=== PATIENT | female | born 1995 | race Caucasian/White ===

== ENCOUNTER 2016-03-03 22:55 | Emergency (ER) | payer SELFPAY ==
--- NOTE | 2016-03-03 23:34 | ERRECORD ---
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 throbbing, n/v. HISTORIAN: History provided by patient, History provided by patient's spouse. LOCATION: Symptoms are localized. QUALITY: Pain is dull in nature, described as aching, described as throbbing. SEVERITY: Maximum severity of symptoms severe, Currently symptoms are moderate, may be slightly better than earlier, but pt still not able to sleep. TIME COURSE: Sudden onset of symptoms, Symptoms are improving, Symptoms are constant. ASSOCIATED WITH FEMALE: No associated symptoms, ONLY ABOVE. EXACERBATED BY: Patient's condition exacerbated by eye opening, Patient's condition exacerbated by light. RELIEVED BY: Patient's condition relieved by dark room. RISK FACTORS: No subarachnoid hemorrhage risk factors, Subarachnoid hemorrahage risk factor analysis completed. ROS CONSTITUTIONAL: Negative constitutional review of systems. (23:19 LLDO) EYES: Historian reports photophobia. (23:19 LLDO) ENT: Negative ears, nose, throat review of systems, Historian denies epistaxis, denies rhinorrhea, denies sinus pain, denies sore throat. (23:21 LLDO) GI: Historian reports anorexia, reports appetite changes, reports nausea, reports vomiting. (23:19 LLDO) MUSCULOSKELETAL: Negative musculoskeletal review of systems, Historian denies arthralgias, denies back pain, denies injury, denies myalgias, denies neck pain. (23:21 LLDO) SKIN: Negative skin review of systems, Historian denies cellulitis, denies rash, denies skin changes, denies skin lesions. (23:21 LLDO) NEUROLOGIC: Historian denies confusion, denies dizziness, denies dysphasia, denies focal weakness, denies gait changes, reports headache, denies irritability, denies lethargy, denies mental status changes. (23:19 LLDO) HEMO/LYMPHATIC: Normal hematologic/lymphatic system review, Historian denies abnormal blood clotting, denies gum bleeding, denies petechiae. (23:21 LLDO) ALLERGIC/IMMUNOLOGIC: Normal allergy/immunologic system review, Historian denies eczema, denies environmental allergies, denies food allergies. (23:21 LLDO) PSYCHIATRIC: Negative psychiatric review of systems, Historian denies alcohol abuse, denies anxiety, denies depression, denies drug abuse, denies hallucinations. (23:21 LLDO) NOTES: All systems reviewed, negative except as described above. &a-1R&a+25V*p+0X*u6459I*c202B*c15G*c2P*p-0X&a-25V&a+1R Name: Roland Lisa : 1995 F21 MedRec: [id number] AcctNum: [id number] Prepared: [facility] Mar 03, 2016 23:32 by Interface Page 1 of 3 pMD [facility] EMERGENCY RECORD (23:19 LLDO) PAST MEDICAL HISTORY MEDICAL HISTORY: No past medical history, Flu vaccine not up to date, Tetanus immunization up to date, Pneumococcal vaccine not up to date. (23:10 CJEF) FEMALE SURGICAL HISTORY: Patient has no surgical history,. (23:10 CJEF) PSYCHIATRIC HISTORY: Notes: DENIES, No previous psychiatric history. (23:10 CJEF) SOCIAL HISTORY: Patient denies alcohol use, Patient denies drug use, Patient has no smoking history, Lives at home, with family. (23:10 CJEF) NOTES: Nursing records reviewed, Agree with nursing records, Old chart reviewed, Medication list reviewed. (23:21 LLDO) KNOWN ALLERGIES Allergy History Not Known (Unconfirmed) NKDA (Unconfirmed) No Known Drug Allergies CURRENT MEDICATIONS (23:09 CJEF) None VITAL SIGNS VITAL SIGNS: Pulse: 96, Resp: 18, Temp: 98.5 (Rectal), Pain: 0, O2 sat: 95 on Room Air, Time: 03/03/2016 23:07. (23:07 CJEF) BP: 131/64, Time: 03/03/2016 23:09. (23:09 CJEF) PHYSICAL EXAM CONSTITUTIONAL: Vital Signs Reviewed, Patient afebrile, Pulse normal, Blood pressure normal, Respiratory rate normal, Patient appears, uncomfortable, Patient appears, Patient alert and oriented to person, place and time, Nursing notes reviewed. (23:20 LLDO) HEAD: Head exam normal, Head exam included findings of head atraumatic, normocephalic. (23:21 LLDO) EYES: Eye exam included findings of eyelids normal to inspection, Pupils equally round and reactive to light, Extraocular muscles intact, Conjunctiva normal, Sclera normal, Fundoscopic exam normal. (23:20 LLDO) ENT: ENT exam normal, Ear exam normal, Nose exam normal. (23:21 LLDO) NECK: Neck exam normal, Neck exam included findings of normal range of motion, Trachea midline, no meningeal signs, no tenderness. (23:21 LLDO) BACK: Back exam normal, Back exam included findings of normal inspection, range of motion normal. (23:21 LLDO) UPPER EXTREMITY: Upper extremity exam normal, Upper extremity exam included findings of inspection normal, Range of motion normal. &a-1R&a+25V*p+0X*p7776O*c202B*c15G*c2P*p-0X&a-25V&a+1R Name: Roland Lisa : 1995 F21 MedRec: [id number] AcctNum: [id number] Prepared: [facility] Mar 03, 2016 23:32 by Interface Page 2 of 3 pMD [facility] EMERGENCY RECORD (23:21 LLDO) LOWER EXTREMITY: Lower extremity exam normal, Lower extremity exam included findings of inspection normal, Range of motion normal. (23:21 LLDO) NEURO: Neuro exam normal, Neuro exam findings include patient oriented to person, place and time, Speech normal, [place] coma scale 15. (23:21 LLDO) SKIN: Skin exam normal, Skin exam included findings of skin warm, dry, and normal in color, no rash. (23:21 LLDO) PSYCHIATRIC: Psychiatric exam normal, Psychiatric exam included findings of patient oriented to person place and time, Normal affect. (23:21 LLDO) MEDICATION ADMINISTRATION SUMMARY Drug Name: Zofran ODT, Dose Ordered: 8 mg, Route: Sublingual, Status: Canceled, Time: 23:25 03/03/2016, Drug Name: Naprosyn, Dose Ordered: 500 mg, Route: Oral, Status: Canceled, Time: 23:25 03/03/2016, Drug Name: Benadryl oral, Dose Ordered: 50 mg, Route: Oral, Status: Canceled, Time: 23:03/03/2016, Drug Name: Octamide, Dose Ordered: 20 mg, Route: Oral, Status: Canceled, Time: 23:24 03/03/2016, Detailed record available in Medication Service section. DOCTOR NOTES (23:26 LLDO) TEXT: while I was writing up h&p her sx resolved so no real therapy was initiated and pt left pain free. PROBLEM LIST No recorded problems DIAGNOSIS (23:14 LLDO) FINAL: PRIMARY: Migraine (unspecified). PRESCRIPTION No recorded prescriptions DISPOSITION PATIENT: Disposition Type: Discharge, Disposition: *Discharge Home. (23:14 LLDO) Disposition Transport: Ambulatory, Condition: Good. (23:28 AGAN) Patient left the department. (23:29 AGAN) Mera: AGANyla=JOSE GUADALUPE Grubbs, Louis CJEF=JOSE GUADALUPE Kearns, Yani LLDO=MD Georgina, Grabiel &a-1R&a+25V*p+0X*a1334K*c202B*c15G*c2P*p-0X&a-25V&a+1R Name: Roland Lisa : 1995 F21 MedRec: [id number] AcctNum: [id number] Prepared: Debbie Mar 03, 2016 23:32 by Interface Page 3 of 3 pMD MTDD
--- NOTE | 2016-03-03 23:39 | PICIS ---
[facility] EMERGENCY RECORD TRIAGE (MonMar 03, 2016 23:09 CJEF) TRIAGE NOTES: PT REPORTS THAT SHE HAD A HEADACHE EARLIER AND CALLED INTO WORK. PT REPORTS THAT SHE IS ONLY HERE NOW FOR A WORK EXCUSE. PT DENIES ANY PAIN. PT WAS HERE RECENTLY FOR THE EXACT SAME THING. (MonMar 03, 2016 23:09 CJEF) PATIENT: NAME: Roland Lisa, AGE: 21, GENDER: female, : Mon1995, TIME OF GREET: MonMar 03, 2016 22:55, PREFERRED LANGUAGE: Georgian, ETHNICITY: Not or , FALL RISK: NO, ECODE BILLING MAP: [facility], SSN: [id number], Zip Code: [address], KG WEIGHT: 90.72, PHONE: CELL, , , PERSON ID: [id number], PCP: none. (MonMar 03, 2016 23:09 CJEF) COMPLAINT: MIGRAINE. (MonMar 03, 2016 23:09 CJEF) ADMISSION: URGENCY: 4 Non Urgent, ADMISSION SOURCE: Home, TRANSPORT: Walk-in, BED: ED -04. (MonMar 03, 2016 23:09 CJEF) ASSESSMENT: Assessment: WORK EXCUSE; HEADACHE EARLIER. (23:10 CJEF) PAIN: Patient complains of pain described as. (23:10 CJEF) IMMUNIZATIONS: Flu vaccine not up to date, Tetanus not up to date, Pneumococcal vaccine not up to date. (23:10 CJEF) SIRS SCORING: Heart Rate 55-109 (0), Temp range 96.8-101.1 (0), respiratory rate 12-24 (0), Mental Status altered: no (0), Infection or Suspected Infection: No. (23:10 CJEF) TRIAGE SCREENING: Patient denies suicidal ideation, Patient denies presence of domestic violence. (23:10 CJEF) LMP: Last menstrual period: 02/21/2016. (23:10 CJEF) PROVIDERS: TRIAGE NURSE: Yani Kearns RN. (MonMar 03, 2016 23:09 CJEF) VITAL SIGNS: Pulse 96, Resp 18, Temp 98.5, (Rectal), Pain 0, O2 Sat 95, on Room Air, Time 03/03/2016 23:07. (23:07 CJEF) BP 131/64, Time 03/03/2016 23:09. (23:09 CJEF) PREVIOUS VISIT ALLERGIES: No Known Drug Allergies. (Debbie Mar 03, 2016 23:09 CJEF) No Known Drug Allergies. (23:10 CJEF) KNOWN ALLERGIES Allergy History Not Known (Unconfirmed) NKDA (Unconfirmed) No Known Drug Allergies CURRENT MEDICATIONS (23:09 CJEF) None VITAL SIGNS VITAL SIGNS: Pulse: 96, Resp: 18, Temp: 98.5 (Rectal), Pain: 0, O2 sat: 95 on Room Air, Time: 03/03/2016 23:07. (23:07 CJEF) BP: 131/64, Time: 03/03/2016 23:09. (23:09 CJEF) &a-1R&a+25V*p+0X*s2741Q*c202B*c15G*c2P*p-0X&a-25V&a+1R Name: Roland Lisa : 1995 F21 MedRec: [id number] AcctNum: [id number] Prepared: MonMar 03, 2016 23:32 by Interface Page 1 of 6 pMD [facility] EMERGENCY RECORD NURSING ASSESSMENT: FOCUSED (23:10 CJEF) CONSTITUTIONAL: Complex assessment performed, Patient arrives ambulatory, Gait steady, History obtained from patient, Patient appears comfortable, Patient cooperative, Patient alert, Oriented to person, place and time, Skin warm, Skin dry, Skin normal in color, Mucous membranes pink, Mucous membranes moist, Patient is well-groomed, PT REPORTS THAT SHE HAD A HEADACHE EARLIER AND CALLED INTO WORK. PT REPORTS THAT SHE IS ONLY HERE NOW FOR A WORK EXCUSE. PT DENIES ANY PAIN. PT WAS HERE RECENTLY FOR THE EXACT SAME THING. PAIN: Patient rates pain as 0 out of 10. EYES: Focused eye assessment finding include pupils equally round and reactive to light. NEURO: Focused neuro assessment findings include patient alert, cooperative, No facial droop noted, Speech coherent. RESPIRATORY: Focused respiratory assessment findings include breath sounds clear. ABDOMEN: Focused abdominal assessment findings include abdomen soft, non tender. GENITOURINARY FEMALE: Focused genitourinary assessment not applicable. MUSCULOSKELETAL: Focused musculoskeletal assessment findings include normal range of motion. LACERATION: Focused laceration assessment not applicable. NOTES: Patient tolerated procedure well. SAFETY: Side rails up, Cart/Stretcher in lowest position, Family at bedside, Call light within reach, Hospital ID band on. NURSING PROCEDURE: DISCHARGE NOTE (23:25 AGAN) DISCHARGE: Patient discharged to home, ambulating without assistance, friend driving, accompanied by friend, Summary of Care printed/ provided, Patient requested and was provided an electronic copy of Discharge Instructions, Transition record given to patient, Discharge instructions given to patient, Above person(s) verbalized understanding of discharge instructions and follow-up care, Patient discharged by, Dr. Erickson, Patient instructed not to drive home, Patient treated and evaluated by physician. BELONGINGS: Belongings remain with patient, Valuables remain with patient. NOTES: Notes: No voiced complaints. verbalized understanding of discharge instructions. No questions asked. MEDICATION ADMINISTRATION SUMMARY Drug Name: Zofran ODT, Dose Ordered: 8 mg, Route: Sublingual, Status: Canceled, Time: 23:25 03/03/2016, Drug Name: Naprosyn, Dose Ordered: 500 mg, Route: Oral, Status: Canceled, Time: 23:25 03/03/2016, Drug Name: Benadryl oral, Dose Ordered: 50 mg, Route: Oral, Status: Canceled, Time: 23:25 03/03/2016, &a-1R&a+25V*p+0X*g7006B*c202B*c15G*c2P*p-0X&a-25V&a+1R Name: Roland Lisa : 1995 F21 MedRec: [id number] AcctNum: [id number] Prepared: MonMar 03, 2016 23:32 by Interface Page 2 of 6 pMD [facility] EMERGENCY RECORD Drug Name: Octamide, Dose Ordered: 20 mg, Route: Oral, Status: Canceled, Time: 23:24 03/03/2016, Detailed record available in Medication Service section. MEDICATION SERVICE (CANCELED) Benadryl oral: Order: Benadryl oral (diphenhydramine HCl) - Dose: 50 mg : Oral Schedule: Now Ordered by: Grabiel Erickson MD Entered by: Grabiel Erickson MD Debbie Mar 03, 2016 23:23 Canceled by: Grabile Erickson MD. Debbie Mar 03, 2016 23:25 Cancel reason: Symptoms resolved:Change in medication plan. (CANCELED) Naprosyn: Order: Naprosyn (naproxen) - Dose: 500 mg : Oral Schedule: Now Ordered by: Grabiel Erickson MD Entered by: Grabiel Erickson MD [facility] Mar 03, 2016 23:22 Canceled by: Grabiel Erickson MD. [facility] Mar 03, 2016 23:25 Cancel reason: Symptoms resolved:Change in medication plan. (CANCELED) Octamide: Order: Octamide (metoclopramide HCl) - Dose: 20 mg : Oral Schedule: Now Ordered by: Grabiel Erickson MD Entered by: Grabiel Erickson MD [facility] Mar 03, 2016 23:24 Canceled by: Grabiel Erickson MD. [facility] Mar 03, 2016 23:24 Cancel reason: Symptoms resolved:Change in medication plan. (CANCELED) Zofran ODT: Order: Zofran ODT (ondansetron) - Dose: 8 mg : Sublingual Schedule: Now Ordered by: Grabiel Erickson MD Entered by: Grabiel Erickson MD [facility] Mar 03, 2016 23:22 Canceled by: Grabiel Erickson MD. [facility] Mar 03, 2016 23:25 Cancel reason: Symptoms resolved:Change in medication plan. 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 throbbing, n/v. HISTORIAN: History provided by patient, History provided by patient's spouse. LOCATION: Symptoms are localized. QUALITY: Pain is dull in nature, described as aching, described as throbbing. SEVERITY: Maximum severity of symptoms severe, Currently symptoms are moderate, may be slightly better than earlier, but pt still not able to sleep. TIME COURSE: Sudden onset of symptoms, Symptoms are &a-1R&a+25V*p+0X*d3215D*c202B*c15G*c2P*p-0X&a-25V&a+1R Name: Roland Lisa : 1995 F21 MedRec: [id number] AcctNum: [id number] Prepared: Debbie Mar 03, 2016 23:32 by Interface Page 3 of 6 pMD [facility] EMERGENCY RECORD improving, Symptoms are constant. ASSOCIATED WITH FEMALE: No associated symptoms, ONLY ABOVE. EXACERBATED BY: Patient's condition exacerbated by eye opening, Patient's condition exacerbated by light. RELIEVED BY: Patient's condition relieved by dark room. RISK FACTORS: No subarachnoid hemorrhage risk factors, Subarachnoid hemorrahage risk factor analysis completed. ROS CONSTITUTIONAL: Negative constitutional review of systems. (23:19 LLDO) EYES: Historian reports photophobia. (23:19 LLDO) ENT: Negative ears, nose, throat review of systems, Historian denies epistaxis, denies rhinorrhea, denies sinus pain, denies sore throat. (23:21 LLDO) GI: Historian reports anorexia, reports appetite changes, reports nausea, reports vomiting. (23:19 LLDO) MUSCULOSKELETAL: Negative musculoskeletal review of systems, Historian denies arthralgias, denies back pain, denies injury, denies myalgias, denies neck pain. (23:21 LLDO) SKIN: Negative skin review of systems, Historian denies cellulitis, denies rash, denies skin changes, denies skin lesions. (23:21 LLDO) NEUROLOGIC: Historian denies confusion, denies dizziness, denies dysphasia, denies focal weakness, denies gait changes, reports headache, denies irritability, denies lethargy, denies mental status changes. (23:19 LLDO) HEMO/LYMPHATIC: Normal hematologic/lymphatic system review, Historian denies abnormal blood clotting, denies gum bleeding, denies petechiae. (23:21 LLDO) ALLERGIC/IMMUNOLOGIC: Normal allergy/immunologic system review, Historian denies eczema, denies environmental allergies, denies food allergies. (23:21 LLDO) PSYCHIATRIC: Negative psychiatric review of systems, Historian denies alcohol abuse, denies anxiety, denies depression, denies drug abuse, denies hallucinations. (23:21 LLDO) NOTES: All systems reviewed, negative except as described above. (23:19 LLDO) PAST MEDICAL HISTORY MEDICAL HISTORY: No past medical history, Flu vaccine not up to date, Tetanus immunization up to date, Pneumococcal vaccine not up to date. (23:10 CJEF) FEMALE SURGICAL HISTORY: Patient has no surgical history,. (23:10 CJEF) PSYCHIATRIC HISTORY: Notes: DENIES, No previous psychiatric history. (23:10 CJEF) SOCIAL HISTORY: Patient denies alcohol use, Patient denies drug use, Patient has no smoking history, Lives at home, with &a-1R&a+25V*p+0X*t5870L*c202B*c15G*c2P*p-0X&a-25V&a+1R Name: Roland Lisa : 1995 F21 MedRec: [id number] AcctNum: [id number] Prepared: Debbie Mar 03, 2016 23:32 by Interface Page 4 of 6 pMD [facility] EMERGENCY RECORD family. (23:10 CJEF) NOTES: Nursing records reviewed, Agree with nursing records, Old chart reviewed, Medication list reviewed. (23:21 LLDO) PHYSICAL EXAM CONSTITUTIONAL: Vital Signs Reviewed, Patient afebrile, Pulse normal, Blood pressure normal, Respiratory rate normal, Patient appears, uncomfortable, Patient appears, Patient alert and oriented to person, place and time, Nursing notes reviewed. (23:20 LLDO) HEAD: Head exam normal, Head exam included findings of head atraumatic, normocephalic. (23:21 LLDO) EYES: Eye exam included findings of eyelids normal to inspection, Pupils equally round and reactive to light, Extraocular muscles intact, Conjunctiva normal, Sclera normal, Fundoscopic exam normal. (23:20 LLDO) ENT: ENT exam normal, Ear exam normal, Nose exam normal. (23:21 LLDO) NECK: Neck exam normal, Neck exam included findings of normal range of motion, Trachea midline, no meningeal signs, no tenderness. (23:21 LLDO) BACK: Back exam normal, Back exam included findings of normal inspection, range of motion normal. (23:21 LLDO) UPPER EXTREMITY: Upper extremity exam normal, Upper extremity exam included findings of inspection normal, Range of motion normal. (23:21 LLDO) LOWER EXTREMITY: Lower extremity exam normal, Lower extremity exam included findings of inspection normal, Range of motion normal. (23:21 LLDO) NEURO: Neuro exam normal, Neuro exam findings include patient oriented to person, place and time, Speech normal, [place] coma scale 15. (23:21 LLDO) SKIN: Skin exam normal, Skin exam included findings of skin warm, dry, and normal in color, no rash. (23:21 LLDO) PSYCHIATRIC: Psychiatric exam normal, Psychiatric exam included findings of patient oriented to person place and time, Normal affect. (23:21 LLDO) EVENTS TRANSFER: Triage to Emergency Main ED -04. (Debbie Mar 03, 2016 23:09 CJEF) Removed from Emergency Main ED -04. (23:29 AGAN) DOCTOR NOTES (23:26 LLDO) TEXT: while I was writing up h&p her sx resolved so no real therapy was initiated and pt left pain free. PROBLEM LIST No recorded problems &a-1R&a+25V*p+0X*n9218W*c202B*c15G*c2P*p-0X&a-25V&a+1R Name: Roland Lisa : 1995 F21 MedRec: [id number] AcctNum: [id number] Prepared: MonMar 03, 2016 23:32 by Interface Page 5 of 6 pMD [facility] EMERGENCY RECORD DIAGNOSIS (23:14 LLDO) FINAL: PRIMARY: Migraine (unspecified). DISPOSITION PATIENT: Disposition Type: Discharge, Disposition: *Discharge Home. (23:14 LLDO) Disposition Transport: Ambulatory, Condition: Good. (23:28 AGAN) Patient left the department. (23:29 AGAN) INSTRUCTION (23:14 LLDO) DISCHARGE: MIGRAINE HEADACHE. FOLLOWUP: Follow up with Primary Care Physician as needed. SPECIAL: Follow-up with your PCP. PRESCRIPTION No recorded prescriptions IMAGING (23:23 AGAN) *DISCHARGE INSTRUCTIONS RECEIPT: Image captured from scanner. *SUPPLY CHARGE SHEET: Image captured from scanner. ADMIN DIGITAL SIGNATURE: MD Erickson Lloyd. (23:26 LLDO) MD Erickson Lloyd. (23:28 LLDO) Mera: AGANyla=JOSE GUADALUPE Grubbs, Louis CJEF=JOSE GUADALUPE Kearns, Yani LLDO=MD Erickson Lloyd &a-1R&a+25V*p+0X*y8890I*c202B*c15G*c2P*p-0X&a-25V&a+1R Name: Roland Lisa : 1995 F21 MedRec: [id number] AcctNum: [id number] Prepared: MonMar 03, 2016 23:32 by Interface Page 6 of 6 pMD [facility] MEDICATION RECONCILIATION You were seen in the Emergency Department on: MonMar 03, 2016 KNOWN ALLERGIES Allergy History Not Known (Unconfirmed) NKDA (Unconfirmed) No Known Drug Allergies HOME MEDICATIONS None Notes from the emergency department Reviewed with family Reviewed with patient &a-1R&a+25V*p+0X*e2738B*c202B*c15G*c2P*p-0X&a-25V&a+1R Name: Roland Lisa : 1995 F21 MedRec: [id number] AcctNum: [id number] Prepared: MonMar 03, 2016 23:32 by Interface pMD [facility]
== END 2016-03-03 23:20 | disposition home or self-care (01) ==
LOC: MADERS 22:55
DX: G43.909 Migraine, unspecified, not intractable, without status migrainosus (principal)
CPT/HCPCS: 99283

== ENCOUNTER 2016-03-15 19:28 | Emergency (ER) | payer SELFPAY ==
--- NOTE | 2016-03-15 20:13 | ERRECORD ---
[facility] EMERGENCY RECORD HPI ABDOMINAL PAIN CHIEF COMPLAINTS: Patient presents for evaluation of abdominal pain. (19:52 LHOD) HISTORIAN: History provided by patient. (19:52 LHOD) LOCATION FEMALE: Symptoms are localized, most severe in the epigastrium. (19:59 LHOD) QUALITY: Pain is sharp in nature, Described as similar to previous episodes. (20:00 LHOD) SEVERITY: Maximum severity of pain rated as 8/10, Current severity of pain rated as 0/10. (20:00 LHOD) TIME COURSE: YESTERDAY PT HAD SOME EPIGASTRIC PAIN WHICH RESOLVED. TONIGHT WHILE PT AT WORK SHE DEVELOPED SEVERE EPIGASTRIC PAIN WHICH HAS RESOLVED, BUT SHE REPORTS WORK REQUIRES A NOTE IF SHE LEAVES WORK. PT HAD PEPTIC ULCER DISEASE 8 MONTHS AGO. SHE REPORTS IT FELT THE SAME NOW AND RESPONDS WELL TO PEPCID. (19:52 LHOD) ASSOCIATED WITH FEMALE: No associated recent antibiotic use, No associated bright red blood per rectum, No associated chills, No associated constipation, No associated diarrhea, No associated fever, No associated hematuria, No associated melena, No associated nausea, No associated trauma, No associated inability to tolerate oral intake, No associated urinary tract infection signs or symptoms, No associated vomiting, No associated vaginal discharge, No associated vaginal bleeding. (19:52 LHOD) RELIEVED BY: Patient's condition relieved by over the counter medications, PEPCID. (20:00 LHOD) EXACERBATED BY: Patient's condition exacerbated by food. (20:00 LHOD) ROS (20:01 LHOD) CONSTITUTIONAL: Historian denies chills, denies fever. CARDIOVASCULAR: Historian denies chest pain, denies edema. RESPIRATORY: Historian denies shortness of breath. GI: Historian reports abdominal pain, denies constipation, denies diarrhea, denies melena, denies nausea, denies vomiting. GENITOURINARY FEMALE: Historian denies hematuria, denies vaginal bleeding, denies vaginal discharge. MUSCULOSKELETAL: Historian denies back pain, denies neck pain. SKIN: Historian denies rash. NEUROLOGIC: Historian denies headache. HEMO/LYMPHATIC: Historian denies easy bruising. NOTES: All systems reviewed, negative except as described above. PAST MEDICAL HISTORY MEDICAL HISTORY: Flu vaccine not up to date, Tetanus immunization up to date, Date of immunization: 2015, Pneumococcal vaccine not up to date, Past medical history includes gastrointestinal disease, peptic ulcer disease, No past medical history, Flu vaccine not up to date, Tetanus immunization up to date, Pneumococcal vaccine not up to date. (19:48 MCRS) FEMALE SURGICAL HISTORY: Patient has no surgical history, &a-1R&a+25V*p+0X*z8890R*c202B*c15G*c2P*p-0X&a-25V&a+1R Name: Roland Lisa : 1995 F21 MedRec: [id number] AcctNum: [id number] Prepared: MonMar 15, 2016 20:14 by Interface Page 1 of 3 pMD [facility] EMERGENCY RECORD Patient has no surgical history,. (19:48 MCRS) PSYCHIATRIC HISTORY: Notes: DENIES, No previous psychiatric history. denies history 2. (19:48 MCRS) SOCIAL HISTORY: Patient denies alcohol use, Patient denies drug use, Patient has no smoking history, Patient denies alcohol use, Patient denies drug use, Patient has no smoking history, Lives at home, with family. (19:48 MCRS) NOTES: Nursing records reviewed, HX OF PEPTIC ULCER 8 MONTHS AGO WHICH PT REPORTS RESPONDS WELL TO PEPCID. (20:02 LHOD) KNOWN ALLERGIES Allergy History Not Known (Unconfirmed) NKDA (Unconfirmed) No Known Drug Allergies CURRENT MEDICATIONS (19:40 MCRS) None VITAL SIGNS VITAL SIGNS: BP: 134/77 (Sitting), Pulse: 93, Resp: 18, Temp: 98.3 (Tympanic), Pain: 4 (Burning), O2 sat: 97 on Room Air, Time: 03/15/2016 19:35. (19:35 MCRS) BP: 130/85, Pulse: 82, Resp: 18, Temp: 98.4, Pain: 4, O2 sat: 99 on ra, Time: 03/15/2016 20:05. (20:05 MCRS) PHYSICAL EXAM (20:01 LHOD) CONSTITUTIONAL: Vital Signs Reviewed, Patient afebrile, Pulse normal, Blood pressure normal, Respiratory rate normal, Patient appears non toxic, Patient appears pain free, Patient alert and oriented to person, place and time. EYES: Sclera normal. NECK: Neck exam included findings of normal range of motion, Trachea midline. RESPIRATORY CHEST: Respiratory exam included findings of no respiratory distress, Breath sounds clear. CARDIOVASCULAR: Cardiovascular exam included findings of heart rate regular rate and rhythm, Heart sounds normal. ABDOMEN FEMALE: Abdominal exam included findings of abdomen nontender. BACK: Back exam normal. UPPER EXTREMITY: Upper extremity exam normal. LOWER EXTREMITY: Lower extremity exam normal. NEURO: Neuro exam findings include patient oriented to person, place and time, Speech normal. SKIN: no rash. PROBLEM LIST No recorded problems DIAGNOSIS (19:50 LHOD) &a-1R&a+25V*p+0X*z4620J*c202B*c15G*c2P*p-0X&a-25V&a+1R Name: SloanRoland : 1995 F21 MedRec: [id number] AcctNum: [id number] Prepared: MonMar 15, 2016 20:14 by Interface Page 2 of 3 pMD [facility] EMERGENCY RECORD FINAL: PRIMARY: GASTRITIS VERSUS PEPTIC ULCER. PRESCRIPTION No recorded prescriptions DISPOSITION PATIENT: Disposition Type: Discharge, Disposition: *Discharge Home, Condition: Good. (19:50 LHOD) Disposition Transport: Car. (20:08 MCRS) Patient left the department. (20:09 MCRS) Mera: LHOD=MD Krzysztof, Devon MCRS=JOSE GUADALUPE Cox, Gurvinder &a-1R&a+25V*p+0X*b0887B*c202B*c15G*c2P*p-0X&a-25V&a+1R Name: Roland Lisa : 1995 F21 MedRec: [id number] AcctNum: [id number] Prepared: MonMar 15, 2016 20:14 by Interface Page 3 of 3 pMD MTDD
--- NOTE | 2016-03-15 20:21 | PICIS ---
[facility] EMERGENCY RECORD TRIAGE (MonMar 15, 2016 19:39 MCRS) TRIAGE NOTES: BURNIBG SENSATION TO MID EPIGASTRIC AREA -. (MonMar 15, 2016 19:39 MCRS) PATIENT: NAME: Roland Lisa, AGE: 21, GENDER: female, : Mon1995, TIME OF GREET: MonMar 15, 2016 19:29, PREFERRED LANGUAGE: [place], ETHNICITY: Not or , FALL RISK: NO, ECODE BILLING MAP: [facility], SSN: [id number], Zip Code: [address], KG WEIGHT: 92.53, PHONE: CELL, , , PERSON ID: [id number], PCP: NONE. (MonMar 15, 2016 19:39 MCRS) COMPLAINT: STOMACH PAIN. (MonMar 15, 2016 19:39 MCRS) ADMISSION: URGENCY: 4 Non Urgent, ADMISSION SOURCE: Work, TRANSPORT: CAR, BED: ED -05. (MonMar 15, 2016 19:39 MCRS) ASSESSMENT: Assessment: complaint of burning mid epigastric area x 2 days . burning pain at level 4, Symptoms began x2 days. (19:48 MCRS) PAIN: Patient complains of pain described as, burning, on a scale 0-10 patient rates pain as 4, Location mid epigastric area, Pain is intermittent, Aggravating factors:, Aggravating factors include activity, No relieving factors. (19:48 MCRS) IMMUNIZATIONS: Flu vaccine not up to date, Tetanus immunization up to date, Pneumococcal vaccine not up to date. (19:48 MCRS) SIRS SCORING: Heart Rate 55-109 (0), Temp range 96.8-101.1 (0), respiratory rate 12-24 (0), Mental Status altered: no (0), Infection or Suspected Infection: No. (19:48 MCRS) TRIAGE SCREENING: Patient denies suicidal ideation, Patient denies presence of domestic violence. (19:48 MCRS) PROVIDERS: TRIAGE NURSE: Gurvinder Cox RN. (MonMar 15, 2016 19:39 MCRS) VITAL SIGNS: BP 134/77, (Sitting), Pulse 93, Resp 18, Temp 98.3, (Tympanic), Pain 4, (Burning), O2 Sat 97, on Room Air, Time 03/15/2016 19:35. (19:35 MCRS) PREVIOUS VISIT ALLERGIES: No Known Drug Allergies. (MonMar 15, 2016 19:39 MCRS) No Known Drug Allergies. (19:48 MCRS) KNOWN ALLERGIES Allergy History Not Known (Unconfirmed) NKDA (Unconfirmed) No Known Drug Allergies CURRENT MEDICATIONS (19:40 MCRS) None VITAL SIGNS VITAL SIGNS: BP: 134/77 (Sitting), Pulse: 93, Resp: 18, Temp: 98.3 (Tympanic), Pain: 4 (Burning), O2 sat: 97 on Room Air, Time: 03/15/2016 19:35. (19:35 MCRS) &a-1R&a+25V*p+0X*s8595C*c202B*c15G*c2P*p-0X&a-25V&a+1R Name: Roland Lisa : 1995 F21 MedRec: [id number] AcctNum: [id number] Prepared: MonMar 15, 2016 20:14 by Interface Page 1 of 5 pMD [facility] EMERGENCY RECORD BP: 130/85, Pulse: 82, Resp: 18, Temp: 98.4, Pain: 4, O2 sat: 99 on ra, Time: 03/15/2016 20:05. (20:05 MCRS) NURSING ASSESSMENT: ABDOMEN (19:48 MCRS) CONSTITUTIONAL: Patient arrives ambulatory, Gait steady, History obtained from patient, Patient appears comfortable, Patient cooperative, Patient alert, Oriented to person, place and time, Skin warm, Skin dry, Skin normal in color, Mucous membranes pink, Mucous membranes moist, Patient is well-groomed, Patient complains of burning to epigastric area - history of peptic ulcer disease. PAIN: burning pain, to the epigastric region, Onset of pain x 2 days, on a scale 0-10 patient rates pain as 4, Pain exacerbated by, ambulation. NONVERBAL PAIN: Non Verbal pain assessment findings include: Non-verbal expressions of pain at rest (1). ABDOMEN: Abdomen assessment findings include abdomen symmetrical, Abdomen soft, tender, to the left upper quadrant, Bowel sound normal. GENITOURINARY FEMALE: Notes: differed at this time. SAFETY: Side rails up, Cart/Stretcher in lowest position, Call light within reach, Hospital ID band on. NURSING PROCEDURE: DISCHARGE NOTE (20:05 MCRS) DISCHARGE: Patient discharged to home, ambulating without assistance, driving self, unaccompanied, Summary of Care printed/ provided, Patient requested and was provided an electronic copy of Discharge Instructions, Transition record given to patient, Discharge instructions given to patient, Simple or moderate discharge teaching performed, discharge instructions, Above person(s) verbalized understanding of discharge instructions and follow-up care, Patient treated and evaluated by physician. BELONGINGS: Valuables remain with patient. VITAL SIGNS: BP: 130, / 85, Pulse: 82, Resp: 18, Temp: 98.4, Pain: 4, O2 sat: 99, on: ra, Time: 2004. HPI ABDOMINAL PAIN CHIEF COMPLAINTS: Patient presents for evaluation of abdominal pain. (19:52 LHOD) HISTORIAN: History provided by patient. (19:52 LHOD) LOCATION FEMALE: Symptoms are localized, most severe in the epigastrium. (19:59 LHOD) QUALITY: Pain is sharp in nature, Described as similar to previous episodes. (20:00 LHOD) SEVERITY: Maximum severity of pain rated as 8/10, Current severity of pain rated as 0/10. (20:00 LHOD) TIME COURSE: YESTERDAY PT HAD SOME EPIGASTRIC PAIN WHICH RESOLVED. TONIGHT WHILE PT AT WORK SHE DEVELOPED SEVERE EPIGASTRIC PAIN WHICH HAS RESOLVED, BUT SHE REPORTS WORK REQUIRES A NOTE IF SHE LEAVES WORK. PT HAD PEPTIC ULCER DISEASE 8 MONTHS AGO. SHE REPORTS IT FELT THE SAME NOW AND RESPONDS WELL TO PEPCID. (19:52 LHOD) ASSOCIATED WITH FEMALE: No associated recent &a-1R&a+25V*p+0X*o3146V*c202B*c15G*c2P*p-0X&a-25V&a+1R Name: Goodfield, Roland Nunes : 1995 F21 MedRec: [id number] AcctNum: [id number] Prepared: Karla Mar 15, 2016 20:14 by Interface Page 2 of 5 pMD [facility] EMERGENCY RECORD antibiotic use, No associated bright red blood per rectum, No associated chills, No associated constipation, No associated diarrhea, No associated fever, No associated hematuria, No associated melena, No associated nausea, No associated trauma, No associated inability to tolerate oral intake, No associated urinary tract infection signs or symptoms, No associated vomiting, No associated vaginal discharge, No associated vaginal bleeding. (19:52 LHOD) RELIEVED BY: Patient's condition relieved by over the counter medications, PEPCID. (20:00 LHOD) EXACERBATED BY: Patient's condition exacerbated by food. (20:00 LHOD) ROS (20:01 LHOD) CONSTITUTIONAL: Historian denies chills, denies fever. CARDIOVASCULAR: Historian denies chest pain, denies edema. RESPIRATORY: Historian denies shortness of breath. GI: Historian reports abdominal pain, denies constipation, denies diarrhea, denies melena, denies nausea, denies vomiting. GENITOURINARY FEMALE: Historian denies hematuria, denies vaginal bleeding, denies vaginal discharge. MUSCULOSKELETAL: Historian denies back pain, denies neck pain. SKIN: Historian denies rash. NEUROLOGIC: Historian denies headache. HEMO/LYMPHATIC: Historian denies easy bruising. NOTES: All systems reviewed, negative except as described above. PAST MEDICAL HISTORY MEDICAL HISTORY: Flu vaccine not up to date, Tetanus immunization up to date, Date of immunization: 2015, Pneumococcal vaccine not up to date, Past medical history includes gastrointestinal disease, peptic ulcer disease, No past medical history, Flu vaccine not up to date, Tetanus immunization up to date, Pneumococcal vaccine not up to date. (19:48 MCRS) FEMALE SURGICAL HISTORY: Patient has no surgical history, Patient has no surgical history,. (19:48 MCRS) PSYCHIATRIC HISTORY: Notes: DENIES, No previous psychiatric history. denies history 2-17. (19:48 MCRS) SOCIAL HISTORY: Patient denies alcohol use, Patient denies drug use, Patient has no smoking history, Patient denies alcohol use, Patient denies drug use, Patient has no smoking history, Lives at home, with family. (19:48 MCRS) NOTES: Nursing records reviewed, HX OF PEPTIC ULCER 8 MONTHS AGO WHICH PT REPORTS RESPONDS WELL TO PEPCID. (20:02 LHOD) PHYSICAL EXAM (20:01 LHOD) CONSTITUTIONAL: Vital Signs Reviewed, Patient afebrile, Pulse normal, Blood pressure normal, Respiratory rate normal, Patient appears non toxic, Patient appears pain free, Patient alert and oriented to person, place and time. &a-1R&a+25V*p+0X*n1128M*c202B*c15G*c2P*p-0X&a-25V&a+1R Name: Roland Lisa : 1995 F21 MedRec: [id number] AcctNum: [id number] Prepared: MonMar 15, 2016 20:14 by Interface Page 3 of 5 pMD [facility] EMERGENCY RECORD EYES: Sclera normal. NECK: Neck exam included findings of normal range of motion, Trachea midline. RESPIRATORY CHEST: Respiratory exam included findings of no respiratory distress, Breath sounds clear. CARDIOVASCULAR: Cardiovascular exam included findings of heart rate regular rate and rhythm, Heart sounds normal. ABDOMEN FEMALE: Abdominal exam included findings of abdomen nontender. BACK: Back exam normal. UPPER EXTREMITY: Upper extremity exam normal. LOWER EXTREMITY: Lower extremity exam normal. NEURO: Neuro exam findings include patient oriented to person, place and time, Speech normal. SKIN: no rash. EVENTS TRANSFER: Triage to Emergency Main ED -05. (MonMar 15, 2016 19:39 MCRS) Removed from Emergency Main ED -05. (20:09 MCRS) PROBLEM LIST No recorded problems DIAGNOSIS (19:50 LHOD) FINAL: PRIMARY: GASTRITIS VERSUS PEPTIC ULCER. DISPOSITION PATIENT: Disposition Type: Discharge, Disposition: *Discharge Home, Condition: Good. (19:50 LHOD) Disposition Transport: Car. (20:08 MCRS) Patient left the department. (20:09 MCRS) INSTRUCTION (19:51 LHOD) DISCHARGE: PEPTIC ULCER VS GASTRITIS. FOLLOWUP: Follow up with Primary Care Physician as needed. SPECIAL: CONTINUE PEPCID FOR NEXT 2 WEEKS. *RETURN IF WORSE Follow-up with your PCP. PRESCRIPTION No recorded prescriptions IMAGING *SUPPLY CHARGE SHEET: Image captured from scanner. (20:07 MCRS) *DISCHARGE INSTRUCTIONS RECEIPT: Image captured from scanner. (20:08 MCRS) ADMIN (20:03 LHOD) DIGITAL SIGNATURE: MD Blankenship Lefayne. &a-1R&a+25V*p+0X*m4414B*c202B*c15G*c2P*p-0X&a-25V&a+1R Name: Roland Lisa : 1995 F21 MedRec: [id number] AcctNum: [id number] Prepared: MonMar 15, 2016 20:14 by Interface Page 4 of 5 pMD [facility] EMERGENCY RECORD Mera: LHOD=MD Krzysztof, Devon MCRS=JOSE GUADALUPE Cox, Gurvinder &a-1R&a+25V*p+0X*n5349Y*c202B*c15G*c2P*p-0X&a-25V&a+1R Name: Roland Lisa : 1995 F21 MedRec: [id number] AcctNum: [id number] Prepared: MonMar 15, 2016 20:14 by Interface Page 5 of 5 pMD MTDD
== END 2016-03-15 20:05 | disposition home or self-care (01) ==
LOC: MADERS 19:28
DX: R10.13 Epigastric pain (principal)
CPT/HCPCS: 99283

== ENCOUNTER 2016-04-09 20:52 | Emergency (ER) | payer SELFPAY ==
[~2016-04-09 20:52] MED LIST: Lidocaine 1% 20 ML MDV ONE
[2016-04-09 21:28] LABS: Bilirubin Negative (Negative); Blood, Urine Negative (Negative); Clarity Hazy (Clear); Glucose, Urine (Dipstick) Negative (Negative); Leukocyte Trace (Negative); Nitrite Negative (Negative); Protein, Urine (Dipstick) Negative (Neg-Trace); Specific Gravity, Urine 1.015 (1.005-1.030); Urobilinogen 0.2 mg/dL (0.2-1.0)
[2016-04-09 21:29] LABS: Pregnancy Test - Urine (BHCG) POSITIVE (NEGATIVE); Pregu Control Background? CLEAR/WHITE (CLR/WHITE); Pregu Control Bar Appear? YES (CONTROL BAR); RBC/HPF 0-3 HPF (0-3); Specific Gravity 1.015 (1.002-1.036)
[2016-04-09 21:30] LABS: Bacteria/HPF 2+ HPF (None Seen); Renal Epithelial 0-3 HPF (0-3); Transitional Epithelial 0-3 HPF (0-3); Yeast-All Forms Rare HPF (None Seen)
[2016-04-09] MEDS ORDERED: cefTRIAXone\\ROCEPHIN 1 GM VIAL ONE (21:47)
[2016-04-09 22:09] LABS: Wet Prep Clue Cells Clue Cells Absent (None Seen); Wet Prep Trichomonas Trichomonas Absent (None Seen)
[2016-04-13 02:27] LABS: Chlamydia by PCR Not Detected (NotDetected); GC by PCR Not Detected (NotDetected)
== END 2016-04-09 22:19 | disposition home or self-care (01) ==
LOC: MADERS 20:52
DX: O23.11 Infections of bladder in pregnancy, first trimester (principal)
CPT/HCPCS: 81003; 81015; 81025; 87086; 87210; 87491; 87591; 96372; J0696; J2001

== ENCOUNTER 2020-02-17 18:57 | Emergency (ER) | payer SELFPAY ==
[2020-02-17] MEDS ORDERED: Acetaminophen 500 MG TAB ONE ×2 (19:39)
[2020-02-18 16:45] LABS: SARS-CoV-2 MS2 Positive; SARS-CoV-2 N Gene Negative; SARS-CoV-2 S Gene Negative; SARS-CoV-2 by NAA Not Detected (NotDetected); SARS-CoV-2 orf1ab Negative
== END 2020-02-17 20:22 | disposition home or self-care (01) ==
LOC: MADERS 18:57
DX: J02.9 Acute pharyngitis, unspecified (principal); Z20.822 Contact with and (suspected) exposure to COVID-19; F17.210 Nicotine dependence, cigarettes, uncomplicated
CPT/HCPCS: 87081; 87430; 87635; 99283; U0003